=== PATIENT | female | born 1970 | race Two or more races ===

== ENCOUNTER 2025-10-02 18:28 | Emergency (ER) | payer OTHER ==
[~2025-10-02] VITALS: Ht 165.1 cm; Wt 80.3 kg
[2025-10-02] MEDS ORDERED: PROAIR RESPICL90 MCG IH (20:43)
[2025-10-02] MEDS ORDERED: ORPHENADRINE CITRATE 30 MG/ML AMPUL IM ONE (21:30)
[2025-10-02] MEDS ORDERED: ACETAMINOPHEN 500 MG GEL..CAP PO ONE ×2 (21:30→21:45)
[2025-10-02] MEDS ORDERED: DEXAMETHASONE SODIUM PHOSPHATE 4 MG/ML VIAL IM ONE (21:30)
[2025-10-02] MEDS ORDERED: ORPHENADRINE CITRATE 30 MG/ML AMPUL ONE (21:45)
[2025-10-02] MEDS ORDERED: DEXAMETHASONE SODIUM PHOSPHATE 4 MG/ML VIAL ONE (21:46)
[2025-10-02 22:07] LABS: BASO % 1.0 % (0.1-1.2); EOS # 0.15 (0.04-0.54); EOS % 2.2 % (0.7-7.0); LYMPH # 2.15 (1.18-3.74); LYMPH % 31.8 % (19.3-53.1); MEAN PLATELET VOLUME 10.40 fl (9.4-12.4); MONO # 0.52 (0.24-0.82); MONO % 7.7 % (4.7-12.5); NEUT # 3.86 (1.56-6.13); NEUT % 57.0 % (34.0-71.1); RED CELL DISTRIBUTION WIDTH 14.3 % (11.6-14.4)
[2025-10-02 22:42] LABS: ALT/SGPT 39.0 U/L (12-78); AST/SGOT 23.0 U/L (15-37); BILIRUBIN TOTAL 0.3 mg/dL (0.3-1.2); BUN CREA RATIO 20.0 (7.0-25.0); CREATININE SERUM 0.82 mg/dL (0.55-1.02); GFR 72.65; GLOBULINA 3.9 G/DL (2.4-3.5); GLUCOSE FASTING 103.0 mg/dL (65-100); OSMOLALITY SERUM 285.0 MOSM/KG (275-295)
[2025-10-02] MEDS ORDERED: PEPCID AC20 MG PO (23:49)
[2025-10-02] MEDS ORDERED: KETO10TA2 PO (23:49)
[2025-10-02] MEDS ORDERED: NORFLEX100MG PO (23:49)
== END 2025-10-03 00:17 | disposition home or self-care (01) ==
LOC: ER 18:29
PROVIDERS: General Practice
DX: R51.9 Headache, unspecified (principal); J45.909 Unspecified asthma, uncomplicated